=== PATIENT | male | born 1960 | race Caucasian/White ===

== ENCOUNTER 2018-09-03 10:15 | Emergency (ER) | payer OTHER ==
[~2018-09-03] VITALS: Ht 182.9 cm; Wt 87.5 kg
[2018-09-03] MEDS ORDERED: GABAPENTIN 100100 MG PO (10:26)
[2018-09-03] MEDS ORDERED: PERCOCET 5-3251 EACH PO (11:40)
[2018-09-03] MEDS ORDERED: ROBAXIN500 MG PO (11:41)
[2018-09-03] MEDS ORDERED: NORCO 5-325 TA1 EAC1 PO (11:49)
[2018-09-03 12:30] VITALS: BP 132/79
== END 2018-09-03 12:30 | disposition home or self-care (01) ==
LOC: M.ERS 10:15
DX: S22.089A Unspecified fracture of T11-T12 vertebra, initial encounter for closed fracture (principal); V57.5XXA Driver of pick-up truck or van injured in collision with fixed or stationary object in traffic accident, initial encounter; Y93.89 Activity, other specified; Y92.89 Other specified places as the place of occurrence of the external cause; Y99.8 Other external cause status